=== PATIENT | female | born 1980 | race Caucasian/White ===

== ENCOUNTER 2023-07-17 22:47 | Emergency (ER) | payer SELFPAY ==
[2023-07-18] MEDS ORDERED: Ketorolac Tromethamine 30 MG/ML VIAL ONE (00:05)
[2023-07-18] MEDS ORDERED: Prochlorperazine 10 MG/2 ML VIAL ONE (00:05)
[2023-07-18] MEDS ORDERED: Acetaminophen 500 MG TAB ONE (00:35)
== END 2023-07-18 00:47 | disposition home or self-care (01) ==
LOC: CSHERS 22:47
DX: R51.9 Headache, unspecified (principal); M25.511 Pain in right shoulder; F17.210 Nicotine dependence, cigarettes, uncomplicated
CPT/HCPCS: 93005; 93010; 99283; J0780; J1885